=== PATIENT | female | born 1975 | race Caucasian/White ===

== ENCOUNTER 2017-11-02 19:55 | Emergency (ER) | payer MEDICAID ==
[~2017-11-02] VITALS: Ht 154.9 cm; Wt 66.7 kg
[2017-11-02 20:00] VITALS: BP 137/81
--- NOTE | 2017-11-02 20:06 | NUR ---
TO ER BED 1
--- NOTE | 2017-11-02 20:10 | NUR ---
PATIENT PRESENTS TO ED WITH RIGHT SIDE FACIAL NUMBNESS SINCE YESTERDAY; RIGHT EYE TEARING AND BURNING, DETENTION ATTENDANT STRONG AND EQUAL BILATERALLY, CLEAR SPEECH. DENIES N/V/D; SKIN IS PINK/WARM/DRY; AAOX4 WITH EVEN AND STEADY GAIT; LUNGS CLEAR BL; HR EVEN AND REGULAR; PT DENIES ANY FEVER, CP, SOB, OR COUGH AT THIS TIME; PATIENT STATES PAIN OF 0/10 AT THIS TIME; VSS; PATIENT POSITIONED FOR COMFORT; HOB ELEVATED; BEDRAILS UP X2; BED DOWN. ER MD MADE AWARE OF PT STATUS.
[2017-11-02] MEDS ORDERED: methylPREDNISolone SS 125 MG/2 ML VIAL IM ONE (20:25)
[2017-11-02 20:52] VITALS: BP 137/81
--- NOTE | 2017-11-02 20:52 | NUR ---
Patient discharged with v/s stable. Written and verbal after care instructions given and explained. Patient alert, oriented and verbalized understanding of instructions. Ambulatory with steady gait. All questions addressed prior to discharge. ID band removed. Patient advised to follow up with PMD. Rx of ACYCLOVIR AND PREDNISONE given. Patient educated on indication of medication including possible reaction and side effects. Opportunity to ask questions provided and answered.
== END 2017-11-02 20:52 | disposition home or self-care (01) ==
LOC: MED 19:55
DX: G51.0 Bell's palsy (principal); R03.0 Elevated blood-pressure reading, without diagnosis of hypertension
CPT/HCPCS: 96372; 99283; J2930

== ENCOUNTER 2017-11-05 09:00 | Emergency (ER) | payer MEDICAID ==
[~2017-11-05] VITALS: Ht 154.9 cm; Wt 64.4 kg
[2017-11-05 09:16] VITALS: BP 117/70
--- NOTE | 2017-11-05 09:17 | NUR ---
Patient to bed 12.
--- NOTE | 2017-11-05 09:18 | NUR ---
42/F BIB FAMILY C/O LEFT SIDED FACIAL NUMBNESS X3 DAYS.PT STATES SHE WAS TREATED LAST WEEK FOR SAME S/SX ON THE RIGHT SIDE OF HER FACE. DENIES N/V/D; SKIN IS PINK/WARM/DRY; AAOX4 WITH EVEN AND STEADY GAIT; LUNGS CLEAR BL; HR EVEN AND REGULAR; PT DENIES ANY FEVER, CP, SOB, OR COUGH AT THIS TIME; PATIENT STATES PAIN OF 8/10 AT THIS TIME; VSS; PATIENT POSITIONED FOR COMFORT; HOB ELEVATED; BEDRAILS UP X2; BED DOWN. ER MD MADE AWARE OF PT STATUS.
--- NOTE | 2017-11-05 09:24 | NUR ---
Patient being evaluated by DR PHILLIPS AT BEDSIDE.
[2017-11-05] MEDS ORDERED: ACETAMINOPHEN EXTRA STRENGTH 500 MG TAB PO ONE (09:35)
--- NOTE | 2017-11-05 09:38 | NUR ---
Patient taken to CT via wheelchair.
--- NOTE | 2017-11-05 09:45 | NUR ---
Patient is back from CT via wheelchair per tech.
[2017-11-05 10:36] VITALS: BP 120/70
== END 2017-11-05 10:36 | disposition home or self-care (01) ==
LOC: MED 09:00
DX: G51.0 Bell's palsy (principal)
CPT/HCPCS: 70450; 99284